=== PATIENT | female | born 1990 | race Caucasian/White ===

== ENCOUNTER 2021-05-05 23:19 | Emergency (ER) | payer MEDICAID ==
[~2021-05-05] VITALS: Ht 162.6 cm; Wt 108.9 kg
[2021-05-05 23:19] VITALS: BP 119/89
[2021-05-06] MEDS ORDERED: IBUPROFEN 800 MG TAB PO ONE (01:15)
[2021-05-06 02:02] LABS: Urine Bacteria FEW /hpf (None Seen); Urine Blood 3+ /uL (Negative); Urine Mucus FEW (None Seen); Urine Specific Gravity 1.018 (1.001-1.035); Urine WBC 22 /hpf (0 - 5)
[2021-05-06 03:07] LABS: Basophils # (auto) 0 10 ^3/uL (0-0.2); Basophils % (auto) 0.4 % (0.0-2.0); Eosinophils # (auto) 0.1 10 ^3/uL (0-0.8); Eosinophils % (auto) 1.2 % (0.0-7.0); Hematocrit 43.2 % (36.0-46.0); Hemoglobin 14.7 g/dL (12.2-16.2); Lymphocytes # (auto) 2.6 10 ^3/uL (0.4-5.4); Lymphocytes % (auto) 25.6 % (10.0-50.0); Mean Corpuscular Hemoglobin 32.5 pg (28.0-32.0); Mean Corpuscular Volume 95.5 fL (80.0-100.0); Monocytes # (auto) 1.1 10 ^3/uL (0-1.3); Monocytes % (auto) 11.1 % (0.0-12.0); Neutrophils # (auto) 6.3 10 ^3/uL (1.6-8.6); Neutrophils % (auto) 61.7 % (37.0-80.0); Nucleated Red Blood Cells % 0.1 %; Red Blood Cells 4.53 10^6/uL (4.0-5.20); Red Cell Distribution Width 14.4 % (11.8-14.3); White Blood Cell 10.2 10^3/uL (4.4-10.8)
[2021-05-06 03:31] LABS: INR 1.02 (0.9-1.15)
[2021-05-06 03:40] LABS: Albumin 3.5 g/dL (3.4-5.0); BUN/Creatinine Ratio 12.2; Calcium 9.2 mg/dL (8.5-10.1); Potassium 4.1 mmol/L (3.5-5.1)
[2021-05-06 03:42] LABS: Bilirubin, Total 0.6 mg/dL (0.2-1.0); Total Protein 7.4 g/dL (6.4-8.2)
== END 2021-05-06 05:10 | disposition home or self-care (01) ==
LOC: ER 23:19
DX: N93.9 Abnormal uterine and vaginal bleeding, unspecified (principal); N39.0 Urinary tract infection, site not specified
CPT/HCPCS: 36415; 80053; 81001; 84702; 85025; 85610